=== PATIENT | male | born 1985 | race Caucasian/White ===

== ENCOUNTER 2019-04-11 22:23 | Emergency (ER) | payer BC ==
[2019-04-11] MEDS ORDERED: IBUPROFEN 400 MG TABLET PO ONE (22:30)
--- NOTE | 2019-04-11 22:36 | Emergency Department Record ---
History of Present Illness - General Chief complaint: Extremity Problem Stated complaint: SMASHED RT INDEX FINGER Time Seen by Provider: 04/11/19 22:28 Source: Patient Mode of Arrival: Ambulatory Limitations: No limitations - History of Present Illness Initial comments: 33 yo male presents to ED for evaluation following injury to the right index finger just prior to arrival. Patient reports that his finger as crushed between a wood-stove door and a block of wood resulting in bruising, pain. Patient denies other injury on examination, and reports that his tetanus is UTD. Patient denies taking anything for pain prior to arrival. MD Complaint: Extremity pain Onset/Timin -: Hour(s) Location: Right, Hand History of Same: No -: Yes Arthralgia Radiation: Distal Quality: Aching Consistency: Constant Improves with: Other (Ice) Worsens with: Other (Movement) Associated Symptoms: Denies other symptoms - Related Data Previous Rx's Medication Instructions Recorded Doxycycline Hyclate 100 mg PO BID #19 cap 04/11/19 Allergies Allergy/AdvReac Type Severity Reaction Status Date / Time Penicillins Allergy RASH Verified 04/11/19 22:31 Review of Systems Constitutional: Denies: Chills, Fever, Malaise, Night sweats Eyes: Denies: Eye discharge, Eye pain ENT: Denies: Congestion, Ear pain, Epistaxis Respiratory: Denies: Cough, Dyspnea Cardiovascular: Denies: Chest pain, Dyspnea on exertion Endocrine: Denies: Fatigue, Heat or cold intolerance Gastrointestinal: Denies: Abdominal pain, Nausea, Vomiting Genitourinary: Denies: Incontinence, Retention Musculoskeletal: Reports: Arthralgia. Denies: Back pain, Gout, Joint swelling Skin: Reports: Bruising. Denies: Change in color Neurological: Denies: Abnormal gait, Confusion, Headache, Seizure Psychiatric: Denies: Anxiety Hematological/Lymphatic: Denies: Anemia, Blood Clots Physical Exam - General General Appearance: Alert, Oriented x3, Cooperative, Mild distress Limitations: No limitations - Head Head exam: Atraumatic, Normocephalic, Normal inspection Head exam detail: negative: Abrasion, Contusion, Hernadez's sign, General tenderness, Hematoma, Laceration - Eye Eye exam: Normal appearance. negative: Conjunctival injection, Periorbital swelling, Periorbital tenderness, Scleral icterus - ENT Ear exam: negative: Auricular hematoma, Auricular trauma Nasal Exam: negative: Active bleeding, Discharge, Dried blood, Foreign body Mouth exam: negative: Drooling, Laceration, Muffled voice, Tongue elevation - Neck Neck exam: Normal inspection. negative: Meningismus, Tenderness - Respiratory Respiratory exam: Normal lung sounds bilaterally. negative: Rales, Respiratory distress, Rhonchi, Stridor - Cardiovascular Cardiovascular Exam: Regular rate, Normal rhythm, Normal heart sounds - GI/Abdominal GI/Abdominal exam: Soft. negative: Rebound, Rigid, Tenderness - Rectal Rectal exam: Deferred - exam: Deferred - Extremities Extremities exam: Tenderness, Other (Ecchymosis, STS to the right index finger tip, very small laceration to the nailfold laterally, no active bleeding is present on examination.). negative: Calf tenderness, Pedal edema - Back Back exam: Denies: CVA tenderness (R), CVA tenderness (L) - Neurological Neurological exam: Alert, Normal gait, Oriented X3 - Psychiatric Psychiatric exam: Normal affect, Normal mood - Skin Skin exam: Normal color. negative: Abrasion Type of lesion: negative: abrasion Course Vital Signs 04/11/19 22:28 Temperature 98.1 F Pulse Rate [ 66 Pulse Ox Probe] Respiratory 20 Rate Blood Pressure 126/82 [Left Arm] Pulse Ox 99 - Reevaluation(s) Reevaluation #1: 04/11/19 22:54 Right Index Finger: Non-displaced tuft fracture right index finger Patient was updated on all results, will place in splint Will prescribe Doxycycline as directed for small laceration lateral nail-fold Will also refer the patient for follow-up with Dr. Paredes in 3-5 days as directed. Patient verbalizes understanding of all instructions, appears stable for discharge at this time. Disposition Disposition: Discharge Clinical Impression: Finger fracture, right Qualifiers: Encounter type: initial encounter Finger: index finger Fracture type: open Phalanx: distal Fracture alignment: nondisplaced Qualified Code(s): S62.660B - Nondisplaced fracture of distal phalanx of right index finger, initial encounter for open fracture Disposition: Home, Self-Care Condition: (2) Stable Instructions: Finger Fracture (ED) Additional Instructions: Return to ED if your symptoms worsen or if you have any concerns. Ibuprofen, Ice as directed. Doxycycline as directed. Follow-up with Dr. Paredes in 3-5 days as directed. Prescriptions: Doxycycline Hyclate 100 mg PO BID #19 cap Referrals: KELSIE PAREDES M.D. [MEDICAL DOCTOR] - Forms: Patient Portal Access Time of Disposition: 22:56 Quality - Quality Measures Quality Measures: N/A - Blood Pressure Screening Does Patient Have Any of the Following: No Blood Pressure Classification: Pre-Hypertensive BP Reading Systolic Measurement: 126 Diastolic Measurement: 82 Screening for High Blood Pressure: < Pre-Hypertensive BP, F/U Documented > [[id number]] Pre-Hypertensive Follow-up Interventions: Referral to alternative/primary care provider.
--- NOTE | 2019-04-11 22:53 | RADIOLOGY REPORT ---
EXAMINATION: Right Thumb, Minimum Two Views EXAM DATE: 04/11/2019 10:50 PM TECHNIQUE: PA, lateral, and oblique views INDICATION: finger injury COMPARISON: None ENCOUNTER: Initial FINDINGS: Nondisplaced tuft fracture of the index finger. No dislocation. No retained radiopaque foreign bodies . Dictated by: Torri Styles MD on 04/11/2019 10:51 PM. .
[2019-04-11] MEDS ORDERED: DOXYCYCLINE HYCLATE 100 MG CAPSULE PO ONE (22:57)
== END 2019-04-11 23:15 | disposition home or self-care (01) ==
LOC: ER 22:23
DX: S62.666A Nondisplaced fracture of distal phalanx of right little finger, initial encounter for closed fracture (principal); W23.1XXA Caught, crushed, jammed, or pinched between stationary objects, initial encounter
CPT/HCPCS: 73140; 99284